=== PATIENT | female | born 1935 | race Caucasian/White ===

== ENCOUNTER 2020-01-21 08:57 | Emergency (ER) | payer OTHER | END 2020-01-21 10:37 | LOC: ED 08:57 | DX: S09.90XA Unspecified injury of head, initial encounter (principal); Z88.0 Allergy status to penicillin; W19.XXXA Unspecified fall, initial encounter; Y93.89 Activity, other specified; Y92.89 Other specified places as the place of occurrence of the external cause; Y99.8 Other external cause status ==

== ENCOUNTER 2021-07-25 16:10 | Emergency (ER) | payer MEDICARE, OTHER ==
[~2021-07-25] VITALS: Wt 83.9 kg
[2021-07-25 17:05] LABS: BASO % 0.6 % (0.0-1.0); EOS # 0.2 10*3/uL (0.0-0.4); EOS % 2.3 % (1.0-4.0); HEMATOCRIT 36.2 % (37.0-47.0); LYMPH # 1.6 10*3/uL (1.3-4.4); LYMPH % 25.2 % (27.0-41.0); MEAN CELL VOLUME 93.1 fl (81.0-99.0); MEAN CORPUSCULAR HGB 29.6 pg (27.0-31.0); MEAN CORPUSCULAR HGB CONC 31.8 g/dl (33.0-37.0); MEAN PLATELET VOLUME 11.1 fl (9.6-12.3); MONO # 0.6 10*3/uL (0.1-1.0); MONO % 8.8 % (3.0-9.0); NEUT # 4.1 10*3/uL (2.3-7.9); NEUT % 62.6 % (47.0-73.0); PLATELET COUNT AUTOMATED 144 10*3/uL (130-400); RED BLOOD COUNT 3.89 10*6/uL (4.10-5.10); RED CELL DISTRI WIDTH 12.9 % (0-14.5); WHITE BLOOD COUNT 6.5 10*3/uL (4.8-10.8)
[2021-07-25 17:23] LABS: CREATININE 1.71 mg/dL (0.55-1.02); POTASSIUM 4.1 mmol/L (3.5-5.1); TOTAL PROTEIN 6.8 gm/dL (6.4-8.2)
[2021-07-25 18:15] LABS: BILIRUBIN Negative (Negative); BLOOD Negative (Negative); CLARITY Clear (Clear); COLOR Yellow (Yellow); GLUCOSE Negative (Negative); KETONE Negative (Negative); LEUKO ESTERASE Negative (Negative); NITRITE Negative (Negative); UROBILINOGEN 0.2 E.U./dl (0.0-1.0)
[2021-07-25] MEDS ORDERED: LEVOFLOXACIN500 MG PO (18:30)
[2021-07-25 18:36] LABS: BACTERIA TRACE; EPITHELIAL CELLS 0-2; WBC 0-2 wbc/hpf (0-5); YEAST TRACE
[2021-07-25] MEDS ORDERED: ASPIRIN ADULT L81 M1 PO (18:51)
== END 2021-07-25 19:18 | disposition home or self-care (01) ==
LOC: ED 16:10
PROVIDERS: Internal Medicine
DX: J06.9 Acute upper respiratory infection, unspecified (principal); R53.1 Weakness; Z88.0 Allergy status to penicillin

== ENCOUNTER 2021-08-15 01:10 | Emergency (ER) | payer MEDICARE, OTHER ==
[~2021-08-15] VITALS: Ht 167.6 cm; Wt 75.8 kg
[~2021-08-15 01:10] MED LIST: ASPIRIN ADULT L81 M1 PO; LEVOFLOXACIN500 MG PO
[2021-08-15 01:57] LABS: BASO % 0.3 % (0.0-1.0); EOS % 0.2 % (1.0-4.0); HEMATOCRIT 35.5 % (37.0-47.0); LYMPH # 0.7 10*3/uL (1.3-4.4); LYMPH % 4.7 % (27.0-41.0); MEAN CELL VOLUME 92.4 fl (81.0-99.0); MEAN CORPUSCULAR HGB 29.4 pg (27.0-31.0); MEAN CORPUSCULAR HGB CONC 31.8 g/dl (33.0-37.0); MEAN PLATELET VOLUME 10.8 fl (9.6-12.3); MONO # 0.8 10*3/uL (0.1-1.0); MONO % 5.6 % (3.0-9.0); NEUT # 12.8 10*3/uL (2.3-7.9); NEUT % 88.8 % (47.0-73.0); PLATELET COUNT AUTOMATED 180 10*3/uL (130-400); RED BLOOD COUNT 3.84 10*6/uL (4.10-5.10); WHITE BLOOD COUNT 14.4 10*3/uL (4.8-10.8)
[2021-08-15 02:15] LABS: CREATININE 2.27 mg/dL (0.55-1.02); POTASSIUM 4.6 mmol/L (3.5-5.1)
[2021-08-15] MEDS ORDERED: ATORVASTATIN CA80 M1 PO (03:06)
[2021-08-15] MEDS ORDERED: AVPAK AZITHROM250 M1 PO (03:06)
[2021-08-15] MEDS ORDERED: Lopressor25 MG PO (03:07)
[2021-08-15] MEDS ORDERED: FUROSEMIDE20 M1 PO (03:07)
[2021-08-15] MEDS ORDERED: MEMANTINE HCL5 MG PO (03:08)
[2021-08-15] MEDS ORDERED: MONTELUKAST SOD10 MG PO (03:08)
[2021-08-15] MEDS ORDERED: POTASSIUM CHLO10 MEQ PO (03:09)
[2021-08-15] MEDS ORDERED: RIVASTIGMINE1 EAC1 T (03:09)
[2021-08-15] MEDS ORDERED: OMEPRAZOLE40 MG PO (03:10)
[2021-08-15] MEDS ORDERED: ATIVAN0.5 MG PO (03:10)
[2021-08-15] MEDS ORDERED: MELATONIN 3 MG1 EACH PO (03:12)
[2021-08-15] MEDS ORDERED: FEROSUL325 MG PO (03:13)
[2021-08-15] MEDS ORDERED: REMERON30 M1 PO (03:14)
[2021-08-15] MEDS ORDERED: PYRIDIUM200 M1 PO (03:14)
[2021-08-15] MEDS ORDERED: NYSTOP60 GM T (03:15)
[2021-08-15] MEDS ORDERED: MUCUS RELIEF600 MG PO (03:17)
== END 2021-08-15 06:30 | disposition home or self-care (01) ==
LOC: ED 01:10
PROVIDERS: Emergency Medicine
DX: K56.41 Fecal impaction (principal); J06.9 Acute upper respiratory infection, unspecified; Z79.899 Other long term (current) drug therapy; Z79.82 Long term (current) use of aspirin; Z88.0 Allergy status to penicillin

== ENCOUNTER 2021-09-03 14:01 | Emergency (ER) | payer MEDICARE, OTHER ==
[~2021-09-03] VITALS: Wt 75.3 kg
[~2021-09-03 14:01] MED LIST changes: +ATIVAN0.5 MG PO; +ATORVASTATIN CA80 M1 PO; +AVPAK AZITHROM250 M1 PO; +FEROSUL325 MG PO; +FUROSEMIDE20 M1 PO; +Lopressor25 MG PO; +MELATONIN 3 MG1 EACH PO; +MEMANTINE HCL5 MG PO; +MONTELUKAST SOD10 MG PO; +MUCUS RELIEF600 MG PO; +NYSTOP60 GM T; +OMEPRAZOLE40 MG PO; +POTASSIUM CHLO10 MEQ PO; +PYRIDIUM200 M1 PO; +REMERON30 M1 PO; +RIVASTIGMINE1 EAC1 T
[2021-09-03 14:45] LABS: BASO % 0.4 % (0.0-1.0); EOS % 0.5 % (1.0-4.0); LYMPH # 1.2 10*3/uL (1.3-4.4); LYMPH % 15.4 % (27.0-41.0); MEAN CORPUSCULAR HGB 29.6 pg (27.0-31.0); MEAN CORPUSCULAR HGB CONC 31.5 g/dl (33.0-37.0); MEAN PLATELET VOLUME 10.4 fl (9.6-12.3); MONO # 0.6 10*3/uL (0.1-1.0); MONO % 7.4 % (3.0-9.0); NEUT # 5.9 10*3/uL (2.3-7.9); NEUT % 75.9 % (47.0-73.0); PLATELET COUNT AUTOMATED 185 10*3/uL (130-400); RED BLOOD COUNT 3.51 10*6/uL (4.10-5.10); RED CELL DISTRI WIDTH 12.5 % (0-14.5); WHITE BLOOD COUNT 7.7 10*3/uL (4.8-10.8)
[2021-09-03 15:02] LABS: CREATININE 1.71 mg/dL (0.55-1.02); POTASSIUM 3.9 mmol/L (3.5-5.1); TOTAL PROTEIN 6.6 gm/dL (6.4-8.2)
== END 2021-09-03 20:03 ==
LOC: ED 14:01
PROVIDERS: Emergency Medicine
DX: R55 Syncope and collapse (principal)

== ENCOUNTER 2022-09-13 11:50 | Emergency (ER) | payer MEDICARE, OTHER ==
[~2022-09-13] VITALS: Wt 71.2 kg
[2022-09-13] MEDS ORDERED: MIDODRINE HCL5 M1 PO (12:04)
[2022-09-13] MEDS ORDERED: SYMB160 INH (12:05)
[2022-09-13] MEDS ORDERED: ZOLOFT50 MG PO (12:06)
[2022-09-13] MEDS ORDERED: TRAMADOL HCL50 MG PO (12:06)
[2022-09-13] MEDS ORDERED: PROVENTIL HFA6.7 GM INH (12:12)
[2022-09-13 12:32] LABS: BASO # 0.1 10*3/uL (0.0-0.1); BASO % 0.8 % (0.0-1.0); EOS # 0.3 10*3/uL (0.0-0.4); EOS % 3.7 % (1.0-4.0); HEMATOCRIT 35.7 % (37.0-47.0); LYMPH % 12.8 % (27.0-41.0); MEAN CELL VOLUME 93.9 fl (81.0-99.0); MEAN CORPUSCULAR HGB 30.3 pg (27.0-31.0); MEAN CORPUSCULAR HGB CONC 32.2 g/dl (33.0-37.0); MEAN PLATELET VOLUME 11.1 fl (9.6-12.3); MONO # 0.7 10*3/uL (0.1-1.0); MONO % 9.5 % (3.0-9.0); NEUT # 5.5 10*3/uL (2.3-7.9); NEUT % 72.8 % (47.0-73.0); PLATELET COUNT AUTOMATED 181 10*3/uL (130-400); RED CELL DISTRI WIDTH 12.8 % (0-14.5); WHITE BLOOD COUNT 7.5 10*3/uL (4.8-10.8)
[2022-09-13 12:53] LABS: POTASSIUM 3.4 mmol/L (3.4-5.1); TOTAL PROTEIN 6.9 gm/dL (6.0-8.0)
== END 2022-09-13 13:47 ==
LOC: ED 11:50
PROVIDERS: Internal Medicine
DX: R05.9 Cough, unspecified (principal); E11.9 Type 2 diabetes mellitus without complications; F03.90 Unspecified dementia, unspecified severity, without behavioral disturbance, psychotic disturbance, mood disturbance, and anxiety; F41.9 Anxiety disorder, unspecified; I10 Essential (primary) hypertension; Z88.0 Allergy status to penicillin

== ENCOUNTER 2024-06-06 19:38 | Emergency (ER) | payer MEDICARE, OTHER ==
[~2024-06-06] VITALS: Wt 68.0 kg
[~2024-06-06 19:38] MED LIST changes: +MIDODRINE HCL5 M1 PO; +PROVENTIL HFA6.7 GM INH; +SYMB160 INH; +TRAMADOL HCL50 MG PO; +ZOLOFT50 MG PO
[2024-06-06 20:18] LABS: HEMATOCRIT 54.4 % (37.0-47.0); MEAN CELL VOLUME 95.3 fl (81.0-99.0); MEAN CORPUSCULAR HGB 28.7 pg (27.0-31.0); MEAN CORPUSCULAR HGB CONC 30.1 g/dl (33.0-37.0); NUCLEATED RED BLOOD CELL 0.1 10*3/uL (0.0-0.0); NUCLEATED RED BLOOD CELL 0.3 % (0.0-0.0); PLATELET COUNT AUTOMATED 220 10*3/uL (130-400); RED BLOOD COUNT 5.71 10*6/uL (4.10-5.10); RED CELL DISTRI WIDTH 14.7 % (0-14.5); WHITE BLOOD COUNT 22.6 10*3/uL (4.8-10.8)
[2024-06-06 20:19] LABS: MANUAL DIFF REFLEX YES
[2024-06-06 20:41] LABS: ATYPICAL LYMPHS 1 % (0-0); PLATELET SUFFICIENCY NORMAL (NORMAL); TOTAL CELLS COUNTED 100 #CELLS
[2024-06-06 20:44] LABS: POTASSIUM 2.8 mmol/L (3.4-5.1); TOTAL PROTEIN 8.1 gm/dL (6.0-8.0)
== END 2024-06-06 23:38 ==
LOC: ED 19:38
PROVIDERS: Internal Medicine
DX: I46.9 Cardiac arrest, cause unspecified (principal); E11.9 Type 2 diabetes mellitus without complications; F03.90 Unspecified dementia, unspecified severity, without behavioral disturbance, psychotic disturbance, mood disturbance, and anxiety; F41.9 Anxiety disorder, unspecified; I10 Essential (primary) hypertension; Z88.0 Allergy status to penicillin